=== PATIENT | male | born 1950 | race Caucasian/White ===

== ENCOUNTER 2017-11-18 11:23 | Emergency (ER) | payer MEDICARE, OTHER ==
[2017-11-18 12:51] LABS: CHLORIDE,CL 102 mmol/L (98-109); SODIUM,NA 140 mmol/L (138-146)
[2017-11-18] MEDS ORDERED: Iopamidol 612 MG/ML 100 ML Bottle IVPUSH ONE (13:17)
--- NOTE | 2017-11-19 08:07 | EDM.PDOC ---
Scribed by Luda Hoang 11/18/17 1547 for Viviane Palafox NP ED HPI GENERAL MEDICAL PROBLEM - General Chief Complaint: Genitourinary Problem Stated Complaint: [id number] PAIN IN GROIN AND BULGE Time Seen by Provider: 11/18/17 12:26 Source of Information: Reports: Patient, RN, RN Notes Reviewed History Limitations: Reports: No Limitations - History of Present Illness INITIAL COMMENTS - FREE TEXT/NARRATIVE: Patient presents to ER with complaint of pain and swelling to right groin, which has gotten worse today. Patient began to notice it on Monday. Pain does not radiate to the testicle. Patient has had a hernia surgery with mesh placed on the left side. He has had no fever, chills, nausea, vomiting, diarrhea, constipation, or troubles with urination. Patient states he has had his gallbladder and appendix removed. Onset Date: 11/13/17 Duration: Getting Worse Location: Reports: Other (right groin) Quality: Reports: Ache Severity: Moderate Improves with: Reports: None Worsens with: Reports: None Associated Symptoms: Reports: No Other Symptoms Right Groin Pain Score (Numeric/FACES): 2 - Related Data Allergies Allergy/AdvReac Type Severity Reaction Status Date / Time No Known Allergies Allergy Verified 11/18/17 11:36 Home Meds: Home Meds Lisinopril 40 mg PO DAILY 11/18/17 [History] Metoprolol Succinate [Toprol XL] 25 mg PO DAILY 11/18/17 [History] amLODIPine Besylate [Norvasc] 5 mg PO DAILY 11/18/17 [History] Past Medical History HEENT History: Reports: Hard of Hearing, Impaired Vision Other HEENT History: wears glasses, has hearing aides Cardiovascular History: Reports: Hypertension Respiratory History: Reports: None Genitourinary History: Reports: None Neurological History: Reports: None Psychiatric History: Reports: None Endocrine/Metabolic History: Reports: None Hematologic History: Reports: None Immunologic History: Reports: None Oncologic (Cancer) History: Reports: None Dermatologic History: Reports: None - Infectious Disease History Infectious Disease History: Reports: Chicken Pox, Measles, Mumps - Past Surgical History Head Surgeries/Procedures: Reports: None HEENT Surgical History: Reports: Cataract Surgery GI Surgical History: Reports: Appendectomy, Cholecystectomy, Other (See Below) ( hernia with mesh surgery on left) Other Male Surgeries/Procedures: hernia left groin Musculoskeletal Surgical History: Reports: Arthroscopic Knee Other Musculoskeletal Surgeries/Procedures:: back surgury Social & Family History - Tobacco Use Smoking Status *Q: Never Smoker Second Hand Smoke Exposure: No - Caffeine Use Caffeine Use: Reports: Coffee, Soda - Recreational Drug Use Recreational Drug Use: No ED ROS GENERAL - Review of Systems Review Of Systems: ROS reveals no pertinent complaints other than HPI. ED EXAM, RENAL/ - Physical Exam Exam: See Below Exam Limited By: No Limitations General Appearance: Alert, WD/WN, No Apparent Distress Eye Exam: Bilateral Eye: Normal Inspection Ears: Normal External Exam, Normal Canal, Hearing Grossly Normal, Normal TMs Nose: Normal Inspection, Normal Mucosa, No Blood Throat/Mouth: Normal Inspection, Normal Lips, Normal Teeth, Normal Gums, Normal Oropharynx, Normal Voice, No Airway Compromise Head: Atraumatic, Normocephalic Neck: Normal Inspection, Supple, Non-Tender, Full Range of Motion Respiratory/Chest: No Respiratory Distress, Lungs Clear, Normal Breath Sounds, No Accessory Muscle Use, Chest Non-Tender Cardiovascular: Normal Peripheral Pulses, Regular Rate, Rhythm, No Edema, No Gallop, No JVD, No Murmur, No Rub GI/Abdominal: Other (RLQ pain) (Male) Exam: No Hernia, Normal Inspection, Normal Prostate, Circumcised Rectal (Males) Exam: Deferred Back Exam: Normal Inspection, Full Range of Motion, NT Extremities: Normal Inspection, Normal Range of Motion, Non-Tender, Normal Capillary Refill, No Pedal Edema Neurological: Alert Psychiatric: Normal Affect, Normal Mood Skin Exam: Warm, Dry, Intact, Normal Color, No Rash Lymphatic: No Adenopathy Course - Vital Signs Last Recorded V/S: Last Vital Signs Temp 97.8 F 11/18/17 14:31 Pulse 77 11/18/17 14:31 Resp 18 11/18/17 14:31 BP 164/85 H 11/18/17 14:31 Pulse Ox 94 L 11/18/17 14:31 - Orders/Labs/Meds Orders: Active Orders 24 hr Category Date Time Status UA W/MICROSCOPIC [URIN] Stat Lab 11/18/17 14:46 Ordered Labs: Laboratory Tests 11/18/17 11/18/17 11/18/17 Range/Units 12:41 12:41 14:46 WBC 9.1 (5.0-10.0) 10^3/uL RBC 4.87 (4.6-6.2) 10^6/uL Hgb 15.8 (14.0-18.0) g/dL Hct 44.8 (40.0-54.0) % MCV 92.0 (80-100) fL MCH 32.4 (27.0-34.0) pg MCHC 35.3 H (33.0-35.0) g/dL Plt Count 190 (150-450) 10^3/uL Neut % (Auto) 70.8 (42.2-75.2) % Lymph % (Auto) 18.9 L (20.5-50.1) % Hughes % (Auto) 8.9 H (2-8) % Eos % (Auto) 0.7 L (1.0-3.0) % Baso % (Auto) 0.7 (0.0-1.0) % Sodium 140 (138-146) mmol/L Potassium 3.8 (3.5-4.9) mmol/L Chloride 102 (98-109) mmol/L Carbon Dioxide 27 (24-29) mmol/L Anion Gap 14.8 BUN 22 (8-26) mg/dL Creatinine 0.7 (0.6-1.3) mg/dL Est Cr Clr Drug Dosing 105.73 mL/min Estimated GFR (MDRD) > 60 Glucose 107 H (70-105) mg/dL Calcium 1.2 Urine Color Yellow (YELLOW) Urine Appearance Clear (CLEAR) Urine pH 7.0 (5.0-9.0) Ur Specific [place] 1.015 (1.005-1.030) Urine Protein Negative (NEGATIVE) Urine Glucose (UA) Negative (NEGATIVE) Urine Ketones 15 H (NEGATIVE) Urine Occult Blood Trace-intact H (NEGATIVE) Urine Nitrite Negative (NEGATIVE) Urine Bilirubin Negative (NEGATIVE) Urine Urobilinogen 2.0 H (0.2-1.0) mg/dL Ur Leukocyte Esterase Negative (NEGATIVE) Urine RBC 0-5 /HPF Urine WBC Not seen (0-5/HPF) /HPF Ur Epithelial Cells Rare /HPF Amorphous Sediment Rare (0/HPF) /HPF Urine Bacteria Rare (0-FEW/HPF) /HPF Urine Mucus Few H /LPF Meds: Medications Discontinued Medications Generic Name Dose Route Start Last Admin Trade Name Arthur PRN Reason Stop Dose Admin Iopamidol 100 ml 11/18/17 13:17 11/18/17 13:26 Isovue-300 (61%) IVPUSH 11/18/17 13:18 100 ml ONETIME ONE Administration - Radiology Interpretation Free Text/Narrative:: Abdomen/Pelvis CT: IMPRESSION: Mild thickening of the appendix is present without surrounding inflammatory changes. Findings may be consistent with early appendicitis. Clinical correlation is needed. There are multiple nonspecific nonpathologic but prominent lymph nodes in the mesentery. There are no mesenteric lymph nodes of pathologic dimensions. Thank you for allowing us to participate in the care of your patient. Dictated and Authenticated by: Hernandez Carrillo DO Addendum created by Hernandez Carrillo DO on 11/18/2017 2:50 PM Central Time ([place] & [place]) Correction: Area in question within the right lower quadrant is consistent with vascular prominence. The appendix is not visualized. No surrounding inflammatory changes present. Nonspecific prominent lymph nodes noted within the mesentery. THIS REPORT CONTAINS FINDINGS THAT MAY BE CRITICAL TO PATIENT CARE. The findings were verbally communicated via telephone conference with [employer] Viviane Palafox 2017 2:49 PM CDT. The findings were acknowledged and understood. Initial Report created on 11/18/2017 2:44 PM Central Time ([place] & [place]) Patient states he does not have an appendix. See rad report Departure - Departure Time of Disposition: 15:02 Disposition: Home, Self-Care 01 Condition: Fair Clinical Impression: Right groin pain Diverticulosis Qualifiers: Diverticulosis site: diverticulosis of large intestine Diverticulosis bleeding : diverticulosis without bleeding Qualified Code(s): K57.30 - Diverticulosis of large intestine without perforation or abscess without bleeding - Discharge Information Instructions: Abdominal Pain, Adult, [id number] Referrals: PCP,Not In Area [Primary Care Provider] - Forms: ED Department Discharge Additional Instructions: Follow up with your primary care facility May use tylenol and/or ibuprofen for pain Return to the ER with any further problems. - My Orders Last 24 Hours: My Active Orders 11/18/17 14:46 UA W/MICROSCOPIC [URIN] Stat - Assessment/Plan Last 24 Hours: My Active Orders 11/18/17 14:46 UA W/MICROSCOPIC [URIN] Stat I have read and agree with the documentation that has been completed regarding this visit. By signing this record, I attest that the documentation was completed in my physical presence and is an accurate record of the encounter.
== END 2017-11-18 15:33 | disposition home or self-care (01) ==
LOC: DL.ED 11:23
DX: K57.30 Diverticulosis of large intestine without perforation or abscess without bleeding (principal); I10 Essential (primary) hypertension
CPT/HCPCS: 36415; 74177; 80048; 81001; 85025; 99284; Q9967; 99283